=== PATIENT | female | born 1960 ===

== ENCOUNTER 2023-06-23 07:05 | Day surgery (SDC) | payer OTHER ==
[~2023-06-23 07:05] MED LIST: AVAPRO300 MG; GLIMEPIRIDE4 MG; INTEGRA PLUS; JANUMET 50-1,01 EACH; NEURONTIN300 MG; PEPCID AC20 MG; PROCARDIA; PROTONIX40 MG; SIMVASTATIN; SINGULAIR10 MG; SYNTHROID; [UNRECOGNIZED DRUG - OTHER]
[2023-06-23] MEDS ORDERED: POVIDONE-IODINE 118 ML BOTT TOP ONE ×3 (09:31→11:30)
[2023-06-23] MEDS ORDERED: DIBUCAINE 15 GM OINT..GM. TUBE ONE (09:31)
[2023-06-23] MEDS ORDERED: CEFTRIAXONE SODIUM 2,000 MG VIAL ONE (09:31)
[2023-06-23] MEDS ORDERED: HEMOSTATIC MATRIX 1 KIT KIT TOP ONE ×2 (09:31→11:30)
[2023-06-23] MEDS ORDERED: METRONIDAZOLE/SODIUM CHLORIDE 500 MG/100 ML PIGGYBACK IV ONE ×2 (09:31→11:30)
[2023-06-23] MEDS ORDERED: LIDOCAINE HCL 1%/EPINEPHRINE 50ML VIAL IJ ONE ×2 (10:47→11:30)
[2023-06-23] MEDS ORDERED: CEFTRIAXONE SODIUM 2,000 MG VIAL IV ONE (11:30)
[2023-06-23] MEDS ORDERED: BUPIVACAINE HCL 30 ML VIAL IJ ONE (11:30)
[2023-06-23] MEDS ORDERED: DIBUCAINE 15 GM OINT..GM. TUBE TOP ONE (11:30)
[2023-06-23] MEDS ORDERED: OXYC1TAB9 PO (12:36)
[2023-06-23] MEDS ORDERED: TAMSULOSIN HCL 0.4 MG CAP PO ONE ×2 (12:45→13:24)
== END 2023-06-23 15:40 | disposition home or self-care (01) ==
LOC: CIR.AMB 07:05
PROVIDERS: ATTEND Surgery
DX: K60.3 Anal fistula (principal); K62.89 Other specified diseases of anus and rectum